=== PATIENT | female | born 2000 | race Caucasian/White ===

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

== ENCOUNTER 2019-08-16 13:59 | Emergency (ER) | payer OTHER ==
[~2019-08-16] VITALS: Ht 154.9 cm; Wt 54.4 kg
[2019-08-16 14:06] VITALS: BP 138/74
--- NOTE | 2019-08-16 14:13 | NUR ---
PT AMBULATED TO ER BED 01
--- NOTE | 2019-08-16 14:24 | NUR ---
URINE COLLECTED, HCG POSITIVE RESULT
--- NOTE | 2019-08-16 14:28 | NUR ---
KENZIE STAFFORD AT BEDSIDE
--- NOTE | 2019-08-16 14:30 | NUR ---
PER PATIENT, SHE TOOK 2 HOME TESTS WITH BOTH POSITIVE RESULTS. PT STATES SHE IS IN DENIAL AND WANTS TO CONFIRM THE TESTS. LMP 07/07/19. HAS NOT HAD AN US OR SEEN AN OBGYN. PT DENIES PAIN, OR N/V/D. VS STABLE. PT ALERT AND AWAKE. AMBULATORY WITH STEADY GAIT MED HX:DENIES
--- NOTE | 2019-08-16 14:41 | NUR ---
Patient discharged. Written and verbal after care instructions given and explained REGARDING . Patient verbalized understanding. Ambulatory with steady gait. All questions addressed prior to discharge. Advised to follow up with OBGYN FOR US AND TO TAKE OTC PRENATALS
== END 2019-08-16 14:41 | disposition home or self-care (01) ==
LOC: MED 13:59
DX: O26.891 Other specified pregnancy related conditions, first trimester (principal); Z3A.01 Less than 8 weeks gestation of pregnancy
CPT/HCPCS: 81025; 99281; 99282

== ENCOUNTER 2019-10-29 14:09 | Emergency (ER) | payer OTHER ==
[~2019-10-29] VITALS: Ht 154.9 cm; Wt 54.4 kg
[2019-10-29 14:13] VITALS: BP 140/78
--- NOTE | 2019-10-29 14:18 | NUR ---
AMB TO BED 08 WITH PD
--- NOTE | 2019-10-29 14:19 | NUR ---
DR LOPEZ EVALUATING PT AT BEDSIDE
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
[2019-10-29 15:00] VITALS: BP 128/71
--- NOTE | 2019-10-29 15:00 | NUR ---
Patient discharged with v/s stable. Written and verbal after care instructions given and explained. Patient verbalized understanding. Ambulatory with red cap to custody. All questions addressed prior to discharge. Advised to follow up with PMD.
== END 2019-10-29 15:00 ==
LOC: MED 14:09
DX: M54.5 Low back pain (principal); Z02.89 Encounter for other administrative examinations; V89.2XXA Person injured in unspecified motor-vehicle accident, traffic, initial encounter; Y93.89 Activity, other specified; Y92.89 Other specified places as the place of occurrence of the external cause; Y99.8 Other external cause status
CPT/HCPCS: 99283

== ENCOUNTER 2021-02-25 19:48 | Emergency (ER) | payer OTHER ==
--- NOTE | 2021-02-25 20:07 | NUR ---
DURING TRIAGE PATIENT STATED, "I THINK IM FINE, IM JUST GOING TO GO. THERE ARE A LOT OF OTHER SICK PEOPLE HERE." PT LEFT WITHOUT BEING SEEN.
== END 2021-02-25 20:07 | disposition left against medical advice (07) ==
LOC: MED 19:48
DX: Z53.21 Procedure and treatment not carried out due to patient leaving prior to being seen by health care provider (principal)

== ENCOUNTER 2021-04-13 23:19 | Emergency (ER) | payer OTHER, SELFPAY ==
[~2021-04-13] VITALS: Ht 154.9 cm; Wt 59.0 kg
[2021-04-13 23:24] VITALS: BP 134/95
--- NOTE | 2021-04-13 23:24 | NUR ---
see complete assessment
--- NOTE | 2021-04-13 23:36 | NUR ---
patient in tent
--- NOTE | 2021-04-14 00:21 | NUR ---
PATIENT REFUSED XRAY
[2021-04-14 00:41] VITALS: BP 134/95
--- NOTE | 2021-04-14 00:41 | NUR ---
Patient discharged with v/s stable. Written and verbal after care instructions given and explained. Patient verbalized understanding. Ambulatory with steady gait. ID band removed. All questions addressed prior to discharge. Advised to follow up with PMD.
== END 2021-04-14 00:41 | disposition home or self-care (01) ==
LOC: MED 23:19
DX: R05 Cough (principal); Z20.822 Contact with and (suspected) exposure to COVID-19; R50.9 Fever, unspecified; R61 Generalized hyperhidrosis
CPT/HCPCS: 99283; U0003